=== PATIENT | female | born 1970 | race American Indian/Alaskan Native ===

== ENCOUNTER 2019-05-07 09:13 | Emergency (ER) | payer OTHER ==
[2019-05-07] MEDS ORDERED: ASPIRIN PO ONE (09:29)
[2019-05-07 09:45] LABS: Basophils # (Auto) 0.1 K/mm3 (0.0-0.1); Basophils % (Auto) 0.9 % (0.0-1.8); Eosinophils # (Auto) 0.1 K/mm3 (0.0-0.4); Eosinophils % (Auto) 1.5 % (0.0-4.3); Hematocrit 40.4 % (30.3-42.9); Hemoglobin 13.3 gm/dl (10.1-14.3); Lymphocytes # (Auto) 2.4 K/mm3 (1.2-5.4); Lymphocytes % (Auto) 30.2 % (13.4-35.0); Mean Corpuscular HGB Conc 33 % (30-34); Mean Corpuscular Volume 76 fl (79-97); Monocytes # (Auto) 0.8 K/mm3 (0.0-0.8); Platelet Count 205 K/mm3 (140-440); Red Blood Count 5.34 M/mm3 (3.65-5.03); Red Cell Distribution Width 19.7 % (13.2-15.2)
--- NOTE | 2019-05-07 10:01 | Emergency Department Report ---
ED Chest Pain HPI - General Chief Complaint: Chest Pain Stated Complaint: CHEST PAIN Time Seen by Provider: 05/07/19 09:45 Source: patient, EMS Mode of arrival: Stretcher Limitations: No Limitations - History of Present Illness Initial Comments: Patient is 48 years old female with history of hypertension, CVA in 2014 with left-sided weakness complete recovery. Patient also stated that she had history of mild heart attack. Patient presented to the ER complaining of left sided chest pain, sharp in nature with no radiation. Patient stated that pain increase when she take a deep breath. Patient denied any cough or fever recently. MD Complaint: chest pain Onset: during rest Pain Location: left chest Severity: severe Severity scale (0 -10): 10 Quality: sharp Consistency: constant Improves With: nothing Worsens With: nothing - Related Data Home Medications Medication Instructions Recorded Confirmed Last Taken Amlodipine Besylate [Norvasc] 5 mg PO QDAY 05/07/19 05/07/19 Unknown Atorvastatin [Lipitor Tab] 80 mg PO QHS 05/07/19 05/07/19 Unknown Bisoprolol Fumarate 10 mg PO QDAY 05/07/19 05/07/19 Unknown Cyclobenzaprine [Flexeril] 10 mg PO TID PRN 05/07/19 05/07/19 Unknown Levothyroxine Sodium [Synthroid] 200 mcg PO QDAY 05/07/19 05/07/19 Unknown Allergies Allergy/AdvReac Type Severity Reaction Status Date / Time Penicillins Allergy Swelling Verified 05/07/19 11:07 Heart Score - HEART Score History: Moderately suspicious EKG: Non-specific Age: 45-65 Risk factors: > 3 risk factors or hx of atherosclerotic disease Troponin: < normal limit HEART Score: 5 - Critical Actions Critical Actions: 4-6 pts:12-16.6% risk of adverse cardiac event. Should be admitted ED Review of Systems ROS: Stated complaint: CHEST PAIN Other details as noted in HPI Comment: All other systems reviewed and negative Constitutional: denies: chills, fever Respiratory: denies: cough, orthopnea, shortness of breath, SOB with exertion, SOB at rest Cardiovascular: chest pain Gastrointestinal: denies: abdominal pain, nausea, vomiting, diarrhea, constipation, hematemesis, melena, hematochezia Musculoskeletal: denies: back pain Neurological: denies: headache, weakness, numbness, paresthesias, confusion, abnormal gait ED Past Medical Hx - Past Medical History Previous Medical History?: Yes Hx Hypertension: Yes Additional medical history: stroke - Surgical History Past Surgical History?: Yes Additional Surgical History: appendectomy, thyroidectomy - Social History Smoking Status: Never Smoker - Medications Home Medications: Home Medications Medication Instructions Recorded Confirmed Last Taken Type Amlodipine Besylate [Norvasc] 5 mg PO QDAY 05/07/19 05/07/19 Unknown History Atorvastatin [Lipitor Tab] 80 mg PO QHS 05/07/19 05/07/19 Unknown History Bisoprolol Fumarate 10 mg PO QDAY 05/07/19 05/07/19 Unknown History Cyclobenzaprine [Flexeril] 10 mg PO TID PRN 05/07/19 05/07/19 Unknown History Levothyroxine Sodium [Synthroid] 200 mcg PO QDAY 05/07/19 05/07/19 Unknown History ED Physical Exam - General Limitations: No Limitations General appearance: alert, in no apparent distress - Head Head exam: Present: atraumatic, normocephalic, normal inspection - Eye Eye exam: Present: normal appearance, PERRL - ENT ENT exam: Present: normal exam, normal orophraynx, mucous membranes moist - Neck Neck exam: Present: normal inspection, full ROM. Absent: tenderness, meningismus, lymphadenopathy, thyromegaly - Respiratory Respiratory exam: Present: normal lung sounds bilaterally, chest wall tenderness - Cardiovascular Cardiovascular Exam: Present: regular rate, normal rhythm, normal heart sounds - GI/Abdominal GI/Abdominal exam: Present: soft, normal bowel sounds. Absent: distended, tenderness, guarding, rebound, rigid, organomegaly, mass, bruit, pulsatile mass, hernia - Extremities Exam Extremities exam: Present: normal inspection, full ROM, normal capillary refill. Absent: pedal edema, calf tenderness - Back Exam Back exam: Present: normal inspection, full ROM. Absent: CVA tenderness (R), CVA tenderness (L), muscle spasm, paraspinal tenderness, vertebral tenderness - Neurological Exam Neurological exam: Present: alert, oriented X3, CN II-XII intact - Skin Skin exam: Present: warm, intact, normal color ED Course Vital Signs 05/07/19 05/07/19 12:26 14:56 Pulse Rate 66 87 Respiratory 16 16 Rate Blood Pressure 124/66 150/87 [Left] O2 Sat by Pulse 96 96 Oximetry ED Medical Decision Making - Lab Data Result diagrams: 05/07/19 09:36 05/07/19 09:36 - EKG Data -: EKG Interpreted by Me EKG shows normal: sinus rhythm Rate: normal - EKG Data Interpretation: no acute changes - Radiology Data Radiology results: report reviewed - Medical Decision Making Patient is 48 years old female with history of hypertension, CVA in 2015 with left-sided weakness complete recovery. Patient also stated that she had history of mild heart attack. Patient presented to the ER complaining of left sided chest pain, sharp in nature with no radiation. Patient stated that pain increase when she take a deep breath. Patient denied any cough or fever recently. EKG is unremarkable. Chest x-ray is negative for acute finding. D-dimer is negative. Troponin is negative. Patient's chest pain is reproducible. I advised patient to follow with her primary care physician in the next 2-3 days and to return to the ER if symptoms are not improved. Critical care attestation.: If time is entered above; I have spent that time in minutes in the direct care of this critically ill patient, excluding procedure time. ED Disposition Clinical Impression: Chest pain Disposition: DC-01 TO HOME OR SELFCARE Is pt being admited?: No Condition: Stable Instructions: Chest Pain (ED) Referrals: DAGO MATTHEWS MD [Primary Care Provider] - 3-5 Days
[2019-05-07] MEDS ORDERED: MORPHINE IV ONE (10:03)
[2019-05-07] MEDS ORDERED: ZOFRAN IV ONE (10:03)
[2019-05-07 10:07] LABS: BUN/Creatinine Ratio 12; Blood Urea Nitrogen 11 mg/dL (7-17); Calcium 9.2 mg/dL (8.4-10.2); Hemolysis Index 14
[2019-05-07 10:20] LABS: Alanine Aminotransferase 19 units/L (7-56); Albumin 4.2 g/dL (3.9-5)
[2019-05-07 10:23] LABS: Bilirubin,Direct < 0.2 mg/dL (0-0.2)
--- NOTE | 2019-05-07 10:39 | XRay Report ---
AP CHEST: HISTORY: chest pain AP view of the chest demonstrates a normal mediastinal and cardiac contour with clear lungs and normal bony and soft tissue structures. IMPRESSION: Unremarkable AP chest.
[2019-05-07 11:09] LABS: INR 0.92 (0.87-1.13)
[2019-05-07 11:10] LABS: Partial Thromboplastin Time 32.3 Sec. (24.2-36.6)
[2019-05-07] MEDS ORDERED: REGLAN IV ONE (11:13)
[2019-05-07 14:56] VITALS: BP 150/87
== END 2019-05-07 16:09 | disposition home or self-care (01) ==
LOC: ED 09:13
DX: R07.89 Other chest pain (principal); I10 Essential (primary) hypertension; E89.0 Postprocedural hypothyroidism; Z90.49 Acquired absence of other specified parts of digestive tract; Z88.0 Allergy status to penicillin; Z79.899 Other long term (current) drug therapy; Z86.73 Personal history of transient ischemic attack (TIA), and cerebral infarction without residual deficits
CPT/HCPCS: 36415; 71045; 80048; 80076; 83690; 84484; 85025; 85379; 85610; 85730; 93005; 93010; 96374; 96375; 99284; J2270; J2405; J2765